=== PATIENT | male | born 1990 | race African-American/Black ===

== ENCOUNTER 2016-07-02 18:13 | Emergency (ER) | payer OTHER ==
[~2016-07-02] VITALS: Ht 170.2 cm; Wt 72.6 kg
[~2016-07-02 18:13] MED LIST: NAPROSYN375 MG PO; NORFLEX100 MG PO
[2016-07-02 18:40] VITALS: BP 136/79
--- NOTE | 2016-07-02 18:45 | ED ANIMAL BITE/WOUND CHECK ---
History of Present Illness General Chief Complaint: Suture Removal/Wound Recheck Stated Complaint: SUTURE REMOVAL Source: patient, old records Exam Limitations: no limitations Vital Signs & Intake/Output Vital Signs & Intake/Output Vital Signs Date Time Temp Pulse Resp B/P Pulse O2 O2 Flow FiO2 Ox Delivery Rate 07/02 1840 98.4 91 20 136/79 99 Room Air Allergies Coded Allergies: NO KNOWN ALLERGIES (12/31/13) Reconcile Medications Naproxen (Naprosyn) 375 MG TAB 1 TAB PO BID pAIN with food Orphenadrine Citrate (Norflex) [address] 1 TAB PO BID muscle strain Triage Note: PT TO ED FOR SUTURE REMOVAL TO FOREHEAD. PLACED 06/26/16. DENIES PAIN. NO S/S INFECTION. Triage Nurses Notes Reviewed? yes Onset: Abrupt Duration: day(s): (6), better Timing: recent history Injury Environment: home Severity: mild Severity Numbers: 2 No Modifying Factors: none Associated Symptoms: denies HPI: 25-year-old male presents emergency room for suture removal after being seen here 6 days ago requiring 4 sutures. The patient denies any rashes or skin redness warmth discharge pain. He is otherwise without any complaints there are no modifying factors or associated symptoms otherwise (YOSVANY CASTILLO) Past History Travel History Traveled to [place] past 21 day No Medical History Any Pertinent Medical History? none Neurological: NONE EENT: NONE Cardiovascular: NONE Respiratory: NONE Gastrointestinal: NONE Hepatic: NONE Renal: NONE Musculoskeletal: NONE Psychiatric: NONE Endocrine: NONE Blood Disorders: NONE Tetanus Vaccine: 06/26/16 Surgical History Surgical History: non-contributory Psychosocial History What is your primary language Gambian Tobacco Use: Current Daily Use Daily Tobacco Use Amount/Type: => 5 Cigarettes daily ETOH Use: denies use Illicit Drug Use: denies illicit drug use Family History Hx Contributory? No (YOSVANY CASTILLO) Review of Systems Review of Systems Constitutional: Reports: see HPI. All Other Systems: Reviewed and Negative Comments Review of systems: See HPI, All other systems negative. Constitutional, no chills no fever, no malaise HEENT: No visual changes no sore throat no congestion Cardiovascular: No chest pain , no palpitation Skin, no jaundice no rashes, no change in skin Respiratory: No dyspnea no cough no sputum GI: No nausea no vomiting, no diarrhea, : No dysuria Muscle skeletal: No joint pain, no back pain, no neck pain, Neurologic: No numbness no headache Psych: No stress Heme/endocrine: No bruising no bleeding Immunology: No lymphadenopathy (YOSVANY CASTILLO) Physical Exam Physical Exam General Appearance: well developed/nourished, alert, awake, comfortable Comments: Well-developed well-nourished patient in no apparent distress. HEENT: Atraumatic, sutures [address] to forehead, no surrounding erythema or induration or fluctuance no swelling or ecchymosis extraocular motion intact Neck: Supple, FROm, Back: FROM, Cardiovascular: Regular rate and rhythms no murmurs rubs Respiratory:No respiratory distress. Patient speaking in full complete sentences. Breath sounds clear to auscultation bilaterally Extremities: Full range of motion Neuro: Alert and oriented x3 Skin: Warm & dry;No appreciable rash on exposed skin Psych: Mood affect normal, normal memory normal judgment. (YOSVANY CASTILLO) Progress Differential Diagnosis: abscess, cellulitis Plan of Care: Sutures 4 route by me no wound dehiscence. Patient tolerated procedure well no signs of infection patient feels comfortable with plan (YOSVANY CASTILLO) Departure Departure Time of Disposition: 1841 Disposition: HOME OR SELF CARE Condition: Stable Clinical Impression Primary Impression: Visit for suture removal Referrals: PATIENT HAS NO PRIMARY CARE DR (PCP/Family) Additional Instructions: Return to the ER for follow-up with your primary care physician with any concerns Departure Forms: Customer Survey General Discharge Information (YOSVANY CASTILLO) PA/SENSITOMETRIST Co-Sign Statement Statement: ED Attending supervision documentation- [] I saw and evaluated the patient. I have also reviewed all the pertinent lab results and diagnostic results. I agree with the findings and the plan of care as documented in the PA's/SENSITOMETRIST's documentation. [x] I have reviewed the ED Record and agree with the PA's/SENSITOMETRIST's documentation. [] Additions or exceptions (if any) to the PAs/SENSITOMETRIST's note and plan are summarized below: [] (PEACE PURDY DO
== END 2016-07-02 18:50 ==
LOC: ERH 18:13
DX: Z48.02 Encounter for removal of sutures (principal)
CPT/HCPCS: 99281